=== PATIENT | male | born 1960 | race Caucasian/White ===

== ENCOUNTER 2017-01-26 06:58 | Inpatient (IN) | payer BC ==
[~2017-01-26] VITALS: Ht 177.8 cm; Wt 96.8 kg
[~2017-01-26 06:58] MED LIST: FLEXERIL10 MG PO; IRON325 M1 PO; NOHOMEMEDS
[2017-01-26 07:41] VITALS: BP 122/84
[2017-01-26 14:33] VITALS: BP 123/70
[2017-01-26 15:57] VITALS: BP 123/69
[2017-01-26 18:00] VITALS: BP 119/58
[2017-01-26 20:22] VITALS: BP 118/75
[2017-01-27 00:30] VITALS: BP 124/84
[2017-01-27 04:00] VITALS: BP 117/71
[2017-01-27 05:59] LABS: ANION GAP 6 MEQ/L (2-14); CHLORIDE 103 MEQ/L (99-109); GFR ESTIMATE (CALCULATED) > 59 mL/min/; GLUCOSE 103 mg/dL (70-99); POTASSIUM 3.8 MEQ/L (3.7-5.4); SAMPLE HEMOLYSIS CHECK 0; SAMPLE ICTERIC CHECK 0; SAMPLE LIPEMIA CHECK 0; SODIUM 137 MEQ/L (136-147); UREA NITROGEN (BUN) 15 mg/dL (9-23)
[2017-01-27 07:58] VITALS: BP 126/77
[2017-01-27] MEDS ORDERED: BENADRYL25 MG PO (09:01)
[2017-01-27] MEDS ORDERED: SENNA PLUS TAB1 EACH PO (09:03)
[2017-01-27] MEDS ORDERED: TYLENOL REGULA325 MG PO (09:03)
[2017-01-27] MEDS ORDERED: XARELTO10 MG PO (09:05)
[2017-01-27] MEDS ORDERED: OXYCODONE HCL5 MG PO (09:05)
[2017-01-27 11:19] VITALS: BP 158/82
[2017-01-27 11:31] LABS: HEMATOCRIT 37.8 % (38.0-50.0); MCV 95.2 FL (86-99)
[2017-01-27 15:54] VITALS: BP 159/76
[2017-01-27 20:20] VITALS: BP 156/88
[2017-01-28 00:10] VITALS: BP 149/87
[2017-01-28 03:45] VITALS: BP 147/87
[2017-01-28 08:12] VITALS: BP 130/72
[2017-01-28] MEDS ORDERED: OXYCONTIN10 MG PO (08:35)
[2017-01-28 12:25] VITALS: BP 130/76
[2017-01-28 14:50] VITALS: BP 122/73
== END 2017-01-28 15:17 | DRG 470 ==
LOC: 2SOUTH 06:58 → 3WEST 13:56 → 2SOUTH 15:35 → 3WEST 01-28 15:17
PROVIDERS: Orthopaedic Surgery; Physician Assistant
PROC: 0SRC0J9 Replacement of Right Knee Joint with Synthetic Substitute, Cemented, Open Approach (ICD-10-PCS; principal; 2017-01-26)
DX: M17.0 Bilateral primary osteoarthritis of knee (principal)
CPT/HCPCS: 80048; 85014; 85018; 97530 GP; C1713; J0131; J0461; J0690; J1885; J2250; J7050; J7120; L1820; S0020